=== PATIENT | female | born 1980 | race Caucasian/White ===

== ENCOUNTER 2016-12-23 18:59 | Emergency (ER) | payer BC ==
[2016-12-23 19:00] VITALS: BMI 22.4
[2016-12-23 19:04] VITALS: BP 105/63; PULSE 81; RESP 16; TEMP 99.5; O2SAT 99
[2016-12-23] MEDS ORDERED: Sodium Chloride 0.9% 1,000 ML IV STA (19:39)
--- NOTE | 2016-12-23 19:56 | ED PDOC ---
HPI: Female Pain Time Seen by Provider: 12/23/16 19:00 Chief Complaint (Nursing): Female Genitourinary Chief Complaint (Provider): Female Genitourinary History Per: Patient History/Exam Limitations: no limitations Onset/Duration Of Symptoms: Intermittent Episodes (intermittent bleeding x3 weeks), Worse Since (heavy bleeding x1 day) Current Symptoms Are (Timing): Still Present Associated Symptoms: denies: Fever, Vomiting Additional Complaint(s): 36 year old female presents to ED with complaints of heavy vaginal bleeding x1 day and is . States that the bleeding has since resolved since passing a heavy clot in the ED. (-) pain of any kind, vomiting, or fever. Notes that she found out about x3 weeks ago and has been bleeding intermittently since then. States that VAULT CLERK noted possible passing /blighted ovum. Patient noted being unsure of whether to use Misoprostol or D&C. PCP: Non [facility] Abnormal Vaginal Bleeding: Yes : 2 Para: 1 Past Medical History Reviewed: Historical Data, Nursing Documentation, Vital Signs Vital Signs: Last Vital Signs Temp 99.5 F 12/23/16 19:03 Pulse 81 12/23/16 19:03 Resp 16 12/23/16 19:03 BP 105/63 12/23/16 19:03 Pulse Ox 99 12/23/16 19:03 - Medical History PMH: Anemia Denies: Chronic Kidney Disease - Surgical History Surgical History: No Surg Hx - Family History Family History: States: No Known Family Hx - Social History Current smoker - smoking cessation education provided: No Ex-Smoker (has not smoked in the last 12 months): No Alcohol: None Drugs: Denies - Allergies Allergies/Adverse Reactions: Allergies Allergy/AdvReac Type Severity Reaction Status Date / Time pollens Allergy ITCHING Uncoded 11/03/15 11:31 Review of Systems ROS Statement: Except As Marked, All Systems Reviewed And Found Negative Constitutional: Negative for: Fever Gastrointestinal: Negative for: Vomiting, Abdominal Pain Genitourinary Female: Positive for: Vaginal Bleeding. Negative for: Pelvic Pain Musculoskeletal: Negative for: Back Pain Physical Exam - Reviewed Nursing Documentation Reviewed: Yes Vital Signs Reviewed: Yes - Physical Exam Appears: Positive for: Non-toxic, No Acute Distress Skin: Positive for: Normal Color, Warm, Dry Cardiovascular/Chest: Positive for: Regular Rate, Rhythm. Negative for: Murmur Respiratory: Positive for: Normal Breath Sounds. Negative for: Respiratory Distress Gastrointestinal/Abdominal: Positive for: Normal Exam, Soft. Negative for: Tenderness Back: Positive for: Normal Inspection Extremity: Positive for: Normal ROM. Negative for: Deformity Neurologic/Psych: Positive for: Alert, Oriented. Negative for: Motor/Sensory Deficits - Laboratory Results Result Diagrams: 12/23/16 19:55 12/23/16 19:55 - ECG O2 Sat by Pulse Oximetry: 99 (RA) Pulse Ox Interpretation: Normal Medical Decision Making Medical Decision Makin Initial impression: vaginal bleeding r/o complete AB Initial plan: * T&S * BETA HCG QUANT * Labs * NS IV * Urine C&S * UA * US TRANSVAG 2199 US FINDINGS: Uterus/cervix: The uterus measures 8.9 cm in its cephalocaudad dimension and 5.6 cm in its AP dimension. The endometrium is slightly thickened measuring 16 mm, irregular and inhomogeneous. There is decreased echogenicity extending into the fundal myometrium with increased vascularity of the myometrium surrounding this area. Real-time, there are internal echoes suggesting swirling blood. Right ovary: The right ovary measures 2.9 x 1.3 x 2.1 cm and demonstrates blood flow. Left ovary: The the left ovary measures 2.6 x 1.1 x 2.4 cm and demonstrates a small echogenic nodule measuring 5 mm which may reflect a dermoid. Left ovarian blood flow is present. Free fluid: No free fluid. IMPRESSION: 1. Area of decreased echogenicity extending into the fundal myometrium with moving low-level internal echoes suggesting blood which is surrounded by increased myometrial vascularity. Findings may reflect residua of morbidly adherent placenta. 2. Slightly thickened and irregular endometrium which may reflect blood clot or retained products of conception. 3. 5 mm hyperechoic nodule the left ovary which may reflect a small dermoid. Hemoglobin level: stable UA: negative for infection Patient was made aware of the results and will follow up with DYE RE[employer] OPERATOR HELPER. Patient has had no further bleeding in ED. 2026 Dr. Hein ptsgynecologist being covered by Dr. Pereira, recommends Cytotec 600mg PO x1 in ED. pt agreeable and told to follow up with her doctor tomorrow. made aware of results of CT, copy given for follow up Scribe Attestation: Documented by Olivia Martinez acting as a scribe for Beck Michael MD. Scribe Attestation: All medical record entries made by the Scribe were at my direction and personally dictated by me. I have reviewed the chart and agree that the record accurately reflects my personal performance of the history, physical exam, medical decision making, and the department course for this patient. I have also personally directed, reviewed, and agree with the discharge instructions and disposition. Disposition - Clinical Impression Clinical Impression: Female genitourinary symptoms, Incomplete - Patient ED Disposition Is Patient to be Admitted: No Counseled Patient/Family Regarding: Studies Performed, Diagnosis, Need For Followup - Disposition Disposition: Left W/O Treatment Disposition Time: 21:00 Condition: STABLE Additional Instructions: follow up with your internal medicine doctor in 1-2 days return to the ED with any worsening or concerning symptoms. Instructions: Spontaneous Miscarriage (ED)
[2016-12-23 20:14] LABS: BASO % 0.3 % (0.0-2.0); EOS # 0.1 K/uL (0.0-0.7); EOS % 2.7 % (0.0-4.0); LYMPH # 2.1 K/uL (1.0-4.3); MEAN CELL VOLUME 87.6 fl (81.0-99.0); MEAN CORPUSCULAR HEMOGLOBIN 29.1 pg (27.0-31.0); MEAN CORPUSCULAR HGB CONC 33.2 g/dL (33.0-37.0); MEAN PLATELET VOLUME 7.6 fl (7.2-11.7); MONO # 0.4 K/uL (0.0-0.8); MONO % 8.2 % (0.0-10.0); NEUT # 2.2 K/uL (1.8-7.0); NEUT % 45.8 % (50.0-75.0); NRBC % 0.3 % (0.0-0.0); RED CELL DISTRIBUTION WIDTH 13.6 % (11.5-14.5); WHITE BLOOD COUNT 4.9 K/uL (4.8-10.8)
[2016-12-23 20:17] LABS: RBC URINE 3 /hpf (0-3); URINE BACTERIA RARE (<OCC); URINE BILIRUBIN NEGATIVE (NEGATIVE); URINE BLOOD LARGE (NEGATIVE); URINE COLOR STRAW (YELLOW); URINE GLUCOSE (UA) NEG (Normal); URINE KETONE NEGATIVE (NEGATIVE); URINE LEUKOCYTE ESTERASE NEG Leu/uL (Negative); URINE PROTEIN NEGATIVE (NEGATIVE); URINE UROBILINOGEN 0.2-1.0 mg/dL (0.2-1.0); WBC URINE < 1 /hpf (0-5)
[2016-12-23 20:23] LABS: ALB/GLOB RATIO 1.5 (1.0-2.1); ALKALINE PHOSPHATASE 50 U/L (38-126); ALT/SGPT 25 U/L (9-52); AST/SGOT 20 U/L (14-36); BILIRUBIN,TOTAL 0.1 mg/dl (0.2-1.3); BLOOD UREA NITROGEN 8 mg/dl (7-17); CALCIUM 8.6 mg/dL (8.4-10.2); CARBON DIOXIDE 27 mmol/L (22-30); CHLORIDE 104 mmol/L (98-107); GFR AFRICAN-AMERICAN > 60; GLUCOSE,RANDOM 91 mg/dL (65-105); SODIUM 139 mmol/l (132-148); TOTAL PROTEIN 6.5 G/DL (6.3-8.2)
--- NOTE | 2016-12-24 16:13 | US ---
Indication: Miscarriage Comparison: No prior Technique: Transvaginal pelvic ultrasound Findings: The uterus measures approximately 8.9 x 6.4 x 5.9 cm. The endometrium appears irregular and heterogeneous as well as slightly thickened measuring approximately 16 mm in diameter. Decreased echogenicity is noted extending into the fundal myometrium with possible increased vascularity of the myometrium in this region. Internal echoes are noted. The right ovary measures approximately 2.9 x 2.1 x 1.3 cm. Blood flow is demonstrated. The left ovary measures approximately 2.6 x 1.1 x 2.4 cm. 5 mm echogenic nodule is identified which may represent a dermoid. Blood flow is demonstrated to the left ovary. No significant pelvic free fluid identified. Impression: The endometrium appears irregular and heterogeneous as well as slightly thickened measuring approximately 16 mm in diameter. Decreased echogenicity is noted extending into the fundal myometrium with possible increased vascularity of the myometrium in this region. Internal echoes are noted. Correlate clinically. Retained products of conception are not excluded. 5 mm echogenic nodule, left ovary; may reflect small dermoid. Preliminary impression was provided by virtual radiologic.
== END 2016-12-23 22:12 | disposition home or self-care (01) ==
LOC: H.ER 18:59
DX: O03.9 Complete or unspecified spontaneous abortion without complication (principal)
CPT/HCPCS: 76830; 80053; 81003; 84702; 85025; 86850; 86900; 87086; 99285; J7040

== ENCOUNTER 2016-12-24 04:48 | Inpatient (IN) | payer BC ==
[2016-12-24 04:49] VITALS: BMI 22.4
[2016-12-24] MEDS ORDERED: Sodium Chloride 0.9% 1,000 ML IV STA ×4 (05:08→13:19)
[2016-12-24 05:29] LABS: BASO % 0.2 % (0.0-2.0); EOS % 0.4 % (0.0-4.0); HEMATOCRIT 25.6 % (34.0-47.0); LYMPH % 11.8 % (20.0-40.0); MEAN CELL VOLUME 87.5 fl (81.0-99.0); MEAN CORPUSCULAR HEMOGLOBIN 29.1 pg (27.0-31.0); MEAN CORPUSCULAR HGB CONC 33.2 g/dL (33.0-37.0); MEAN PLATELET VOLUME 7.2 fl (7.2-11.7); MONO # 0.3 K/uL (0.0-0.8); MONO % 3.1 % (0.0-10.0); NEUT # 6.8 K/uL (1.8-7.0); NEUT % 84.5 % (50.0-75.0); RED CELL DISTRIBUTION WIDTH 13.9 % (11.5-14.5); WHITE BLOOD COUNT 8.1 K/uL (4.8-10.8)
--- NOTE | 2016-12-24 05:33 | ED PDOC ---
HPI: Female Pain Time Seen by Provider: 12/24/16 04:50 Chief Complaint (Nursing): Dizziness/Lightheaded Chief Complaint (Provider): near syncope, heavy vaginal bleeding History Per: Patient History/Exam Limitations: no limitations Onset/Duration Of Symptoms: Days Current Symptoms Are (Timing): Still Present Additional Complaint(s): 36yo female who is 9 weeks and has been passing for about 2.5 weeks now presents to the ED for eval of near syncope and heavy vaginal bleeding. Patient was seen and evaluated in this ED last night for same and discharged with diagnosis of incomplete and advised to take cytotec and f/u w/ her ECONOMIC FORECASTER in 1-2 days. Patient states she had near syncopal event prior to presenting and notes heavy vaginal bleeding, cramping, and vomiting so she re-presented to the ED. On arrival to the ED, patient feels a little better. Past Medical History Reviewed: Historical Data, Nursing Documentation, Vital Signs Vital Signs: Last Vital Signs Temp 99 F 12/24/16 05:00 Pulse 68 12/24/16 05:00 Resp 16 12/24/16 05:00 BP 77/45 L 12/24/16 05:00 Pulse Ox 98 12/24/16 05:00 - Medical History PMH: Anemia Denies: Chronic Kidney Disease - Surgical History Surgical History: No Surg Hx - Family History Family History: States: No Known Family Hx - Social History Current smoker - smoking cessation education provided: No Alcohol: None Drugs: Denies - Home Medications Home Medications: Ambulatory Orders Medication Instructions Recorded Ferrous Sulfate [Iron] 325 mg PO Q8H #100 capsule.er 12/25/16 - Allergies Allergies/Adverse Reactions: Allergies Allergy/AdvReac Type Severity Reaction Status Date / Time pollens Allergy ITCHING Uncoded 11/03/15 11:31 Review of Systems ROS Statement: Except As Marked, All Systems Reviewed And Found Negative Constitutional: Positive for: Other (near syncope ) Gastrointestinal: Positive for: Vomiting Genitourinary Female: Positive for: Vaginal Bleeding, Other (cramping ) Physical Exam - Reviewed Nursing Documentation Reviewed: Yes Vital Signs Reviewed: Yes - Physical Exam Appears: Positive for: Well, No Acute Distress Head Exam: Positive for: ATRAUMATIC, NORMAL INSPECTION, NORMOCEPHALIC Skin: Positive for: Warm, Dry, Pallor Eye Exam: Positive for: Normal appearance, EOMI, PERRL ENT: Positive for: Normal ENT Inspection Neck: Positive for: Normal, Painless ROM, Supple Cardiovascular/Chest: Positive for: Regular Rate, Rhythm. Negative for: Murmur , Tachycardia Respiratory: Positive for: Normal Breath Sounds. Negative for: Wheezing, Respiratory Distress Gastrointestinal/Abdominal: Positive for: Normal Exam, Soft. Negative for: Tenderness Back: Positive for: Normal Inspection. Negative for: L CVA Tenderness, R CVA Tenderness Extremity: Positive for: Normal ROM. Negative for: Deformity, Swelling Neurologic/Psych: Positive for: Alert, Oriented - Laboratory Results Result Diagrams: 12/25/16 08:15 12/24/16 05:17 - ECG O2 Sat by Pulse Oximetry: 98 Pulse Ox Interpretation: Normal (RA) Medical Decision Making Medical Decision Makin: Impression: near syncope and heavy vaginal bleeding in setting of currently miscarrying Plan: Type and screen US transvaginal Labs IVF, Zofran 4mg IV ED obs reassess 0545: Spoke with Dr. Rogers (ECONOMIC FORECASTER covering for patient's ECONOMIC FORECASTER) who is aware and will see if a provider from her group can come in to evaluate the patient. 0554: Dr. Rogers called back and states she does not have privileges to operate here. ECONOMIC FORECASTER on-call paged. 0607: Spoke with TELEPHONE LINEMAN on-call Dr. Alexander who will come to ED and see the patient. Patient s/o to Dr. Martinez at 0700 pending TELEPHONE LINEMAN eval. Scribe Attestation: Documented by Castillo Mahoney acting as a scribe for Beck Michael MD. Provider Scribe Attestation: All medical record entries made by the Scribe were at my direction and personally dictated by me. I have reviewed the chart and agree that the record accurately reflects my personal performance of the history, physical exam, medical decision making, and the department course for this patient. I have also personally directed, reviewed, and agree with the discharge instructions and disposition. ED OBSERVATION Date of observation admission: 12/24/16 Time of observation admission: 05:31 - Observation admission statement Patient is being placed in observation because:: vaginal bleeding, near syncope - Goals of Observation Goals of observation are:: pending US transvaginal Disposition - Clinical Impression Clinical Impression: Incomplete , Anemia - Patient ED Disposition Is Patient to be Admitted: Transfer of Care Counseled Patient/Family Regarding: Studies Performed, Diagnosis - Disposition Disposition: Transfer of Care Disposition Time: 07:00 Condition: FAIR Patient Signed Over To: Elbert Martinez Handoff Comments: pending TELEPHONE LINEMAN eval
[2016-12-24 05:42] LABS: ALB/GLOB RATIO 1.5 (1.0-2.1); ALKALINE PHOSPHATASE 35 U/L (38-126); ALT/SGPT 22 U/L (9-52); AST/SGOT 19 U/L (14-36); BILIRUBIN,TOTAL 0.1 mg/dl (0.2-1.3); BLOOD UREA NITROGEN 7 mg/dl (7-17); CALCIUM 8.1 mg/dL (8.4-10.2); CARBON DIOXIDE 24 mmol/L (22-30); CHLORIDE 100 mmol/L (98-107); GFR AFRICAN-AMERICAN > 60; GLUCOSE,RANDOM 114 mg/dL (65-105); POTASSIUM 3.9 MMOL/L (3.6-5.0); SODIUM 132 mmol/l (132-148); TOTAL PROTEIN 5.6 G/DL (6.3-8.2)
--- NOTE | 2016-12-24 08:09 | CP.PCM.CON ---
History of Present Illness - History of Present Illness History of Present Illness: 36 y/o presents to ED with a complaint of heavy vaginal bleeding since the night of 12/23. Pt reports she was 9 weeks when vaginal spotting began to appear 2 weeks ago. She then reports to her OBGYN (Dr. Lopez) who told her she was in the process of having an SAB. She was started on Cytotec after retained products of conception were found on u/s. After inital 600mg dose, pt reports she started profusely bleeding vaginally as well as having shaking chills and nausea/vomiting/diarrhea with lower cramping abdominal pain. POBHx: 1 , FT, uncomplicated in 2014 PGynHx: denies hx of fibroids, STIs, surgeries LMP: October 14, 2016 PMHx: none Meds: none Psurghx: none ALL: NKDA Social: denies ETOH, Drug, tobacco abuse. PE: Gen: AAOx3, lying in bed comfortably, NAD CVS: RRR, S1S2+. No MRG Lungs: CTA B/L, good air entry, No WRR Abd: +BS, soft, minor tenderness to palpation suprapubically, ND, no guarding ridigity : declined Back: neg CVA tenderness. A/P: 36 y/o undergoing SAB at 8 weeks GA. -s/p two units PRBCs -u/s reviewed -pt seen and case discussed with Dr. Grajeda -No OBGYN intervention at this point, will continue to follow Past Patient History - Past Medical History & Family History Past Medical History?: Yes - Past Social History Alcohol: None Drugs: Denies - CARDIAC Hx Cardiac Disorders: No - PULMONARY Hx Respiratory Disorders: No - NEUROLOGICAL Hx Neurological Disorder: No - HEENT Hx HEENT Problems: No - RENAL Hx Chronic Kidney Disease: No - ENDOCRINE/METABOLIC Hx Endocrine Disorders: No - HEMATOLOGICAL/ONCOLOGICAL Hx Anemia: Yes - GASTROINTESTINAL Hx Gastrointestinal Disorders: No - GENITOURINARY/GYNECOLOGICAL Hx Genitourinary Disorders: No - PSYCHIATRIC Hx Emotional Abuse: No Hx Physical Abuse: No Hx Substance Use: No - SURGICAL HISTORY Hx Surgeries: No - ANESTHESIA Hx Anesthesia: No Hx Malignant Hyperthermia: No Meds Allergies/Adverse Reactions: Allergies Allergy/AdvReac Type Severity Reaction Status Date / Time pollens Allergy ITCHING Uncoded 11/03/15 11:31 Results - Vital Signs Recent Vital Signs: Last Vital Signs Temp 98.2 F 12/24/16 07:31 Pulse 67 12/24/16 07:31 Resp 18 12/24/16 07:31 BP 102/57 L 12/24/16 07:31 Pulse Ox 100 12/24/16 07:31 - Labs Result Diagrams: 12/24/16 12:38 12/24/16 05:17
--- NOTE | 2016-12-24 10:54 | US ---
Indication: Post Cytotec bleeding Technique: Transvaginal pelvic ultrasound. Comparison: None available. Findings: The uterus measures approximately 9.1 x 5.9 x 5.4 cm. The endocervical canal is not clearly distinguished throughout its course. Small fluid is noted within the fundal aspect of the endometrial canal. The remainder of the visualized portions of the endometrium appear heterogeneous. The right ovary measures 2.7 x 2.3 x 1.8 9 cm and appears unremarkable. The left ovary measures 2.6 x 2.6 x 1.4 cm and contains 5 mm echogenic focus, favored to represent small fatty lesion such as teratoma. Blood flow is noted to both ovaries. Trace pelvic free fluid. Impression: The endocervical canal is not clearly distinguished throughout its course. Small fluid is noted within the fundal aspect of the endometrial canal. The remainder of the visualized portions of the endometrium appear heterogeneous. 5 mm left ovarian echogenic focus, favored to represent small fatty lesion such as teratoma. Trace pelvic free fluid. Recommend clinical correlation and close interval ultrasound follow-up (within 6 weeks or sooner if indicated).
[2016-12-24 13:15] LABS: BASO % 0.1 % (0.0-2.0); EOS % 0.6 % (0.0-4.0); HEMATOCRIT 19.3 % (34.0-47.0); LYMPH # 1.5 K/uL (1.0-4.3); LYMPH % 29.5 % (20.0-40.0); MEAN CELL VOLUME 88.5 fl (81.0-99.0); MEAN CORPUSCULAR HGB CONC 32.8 g/dL (33.0-37.0); MEAN PLATELET VOLUME 7.5 fl (7.2-11.7); MONO # 0.3 K/uL (0.0-0.8); MONO % 5.3 % (0.0-10.0); NEUT # 3.2 K/uL (1.8-7.0); NEUT % 64.5 % (50.0-75.0); NRBC % 0.1 % (0.0-0.0); RED CELL DISTRIBUTION WIDTH 13.9 % (11.5-14.5)
--- NOTE | 2016-12-24 15:09 | ED PDOC ---
- Laboratory Results Result Diagrams: 12/24/16 12:38 12/24/16 05:17 - ECG O2 Sat by Pulse Oximetry: 100 Disposition - Clinical Impression Clinical Impression: Incomplete , Anemia - POA Present On Arrival: None - Disposition Disposition: Admitted as In-Patient Disposition Time: 15:09 Condition: FAIR
[2016-12-25 08:23] LABS: BASO % 0.5 % (0.0-2.0); EOS # 0.1 K/uL (0.0-0.7); EOS % 2.2 % (0.0-4.0); HEMATOCRIT 27.8 % (34.0-47.0); LYMPH # 1.9 K/uL (1.0-4.3); LYMPH % 36.1 % (20.0-40.0); MEAN CELL VOLUME 86.9 fl (81.0-99.0); MEAN CORPUSCULAR HGB CONC 33.4 g/dL (33.0-37.0); MEAN PLATELET VOLUME 7.4 fl (7.2-11.7); MONO # 0.3 K/uL (0.0-0.8); MONO % 6.2 % (0.0-10.0); NEUT # 2.9 K/uL (1.8-7.0); RED CELL DISTRIBUTION WIDTH 14.5 % (11.5-14.5); WHITE BLOOD COUNT 5.2 K/uL (4.8-10.8)
--- NOTE | 2016-12-25 09:42 | CP.PCM.PN ---
Subjective - Date & Time of Evaluation Date of Evaluation: 12/25/16 Time of Evaluation: 09:30 - Subjective Subjective: She has no more VB. She feels better after trasnfusions. Tolerated diet. She wants to go home Objective - Vital Signs/Intake and Output Vital Signs (last 24 hours): Temp Pulse Resp BP Pulse Ox 97.6 F 77 20 100/60 100 12/25/16 07:47 12/25/16 07:47 12/25/16 07:47 12/25/16 07:47 12/25/16 07:47 - Medications Medications: Current Medications Acetaminophen (Tylenol 325mg Tab) 650 mg PO Q6 PRN PRN Reason: Fever >100.4 F Last Admin: 12/24/16 19:26 Dose: 650 mg Acetaminophen (Tylenol 325mg Tab) 650 mg PO Q6 PRN PRN Reason: Headache Last Admin: 12/25/16 02:00 Dose: 650 mg - Labs Labs: 12/25/16 08:15 - Constitutional Appears: Well, Non-toxic - Head Exam Head Exam: NORMAL INSPECTION - GI/Abdominal Exam GI & Abdominal Exam: Soft. absent: Tenderness - Exam Additional comments: no blood noted on pad Assessment and Plan - Assessment and Plan (Free Text) Assessment: Complete /Anemia S/ P transfusion...asymptomatic Plan: Discahrge home with FeSO4 and follow up PMD in 1-2w
--- NOTE | 2016-12-25 09:44 | CP.PCM.DIS ---
Provider - Provider Date of Admission: 12/24/16 15:07 Attending physician: Jennyfer Grajeda MD Time Spent in preparation of Discharge (in minutes): 10 Diagnosis - Discharge Diagnosis (1) Complete spontaneous Status: Resolved Onset Date: ~12/24/16 Hospital Course - Lab Results Lab Results: Most Recent Lab Values WBC 5.2 K/uL (4.8-10.8) 12/25/16 08:15 RBC 3.20 Mil/uL (3.80-5.20) L 12/25/16 08:15 Hgb 9.3 g/dL (12.0-16.0) L D 12/25/16 08:15 Hct 27.8 % (34.0-47.0) L 12/25/16 08:15 MCV 86.9 fl (81.0-99.0) 12/25/16 08:15 MCH 29.0 pg (27.0-31.0) 12/25/16 08:15 MCHC 33.4 g/dL (33.0-37.0) 12/25/16 08:15 RDW 14.5 % (11.5-14.5) 12/25/16 08:15 Plt Count 123 K/uL (130-400) L 12/25/16 08:15 MPV 7.4 fl (7.2-11.7) 12/25/16 08:15 Neut % (Auto) 55.0 % (50.0-75.0) 12/25/16 08:15 Lymph % (Auto) 36.1 % (20.0-40.0) 12/25/16 08:15 [place] % (Auto) 6.2 % (0.0-10.0) 12/25/16 08:15 Eos % (Auto) 2.2 % (0.0-4.0) 12/25/16 08:15 Baso % (Auto) 0.5 % (0.0-2.0) 12/25/16 08:15 Neut # 2.9 K/uL (1.8-7.0) 12/25/16 08:15 Lymph # 1.9 K/uL (1.0-4.3) 12/25/16 08:15 [place] # 0.3 K/uL (0.0-0.8) 12/25/16 08:15 Eos # 0.1 K/uL (0.0-0.7) 12/25/16 08:15 Baso # 0.0 K/uL (0.0-0.2) 12/25/16 08:15 Sodium 132 mmol/l (132-148) 12/24/16 05:17 Potassium 3.9 MMOL/L (3.6-5.0) 12/24/16 05:17 Chloride 100 mmol/L (98-107) 12/24/16 05:17 Carbon Dioxide 24 mmol/L (22-30) 12/24/16 05:17 Anion Gap 12 (10-20) 12/24/16 05:17 BUN 7 mg/dl (7-17) 12/24/16 05:17 Creatinine 0.6 mg/dL (0.7-1.2) L 12/24/16 05:17 Est GFR ( Amer) > 60 12/24/16 05:17 Est GFR (Non-Af Amer) > 60 12/24/16 05:17 POC Glucose (mg/dL) 142 mg/dL (65-110) H 12/24/16 05:10 Random Glucose 114 mg/dL (65-105) H 12/24/16 05:17 Calcium 8.1 mg/dL (8.4-10.2) L 12/24/16 05:17 Total Bilirubin 0.1 mg/dl (0.2-1.3) L 12/24/16 05:17 AST 19 U/L (14-36) 12/24/16 05:17 ALT 22 U/L (9-52) 12/24/16 05:17 Alkaline Phosphatase 35 U/L (38-126) L D 12/24/16 05:17 Total Protein 5.6 G/DL (6.3-8.2) L 12/24/16 05:17 Albumin 3.4 g/dL (3.5-5.0) L 12/24/16 05:17 Globulin 2.2 gm/dL (2.2-3.9) 12/24/16 05:17 Albumin/Globulin Ratio 1.5 (1.0-2.1) 12/24/16 05:17 Beta HCG, Quant 107.99 mIU/mL 12/24/16 05:17 Blood Type O POSITIVE 12/24/16 05:17 Antibody Screen Negative 12/24/16 05:17 Crossmatch See Detail 12/24/16 05:17 BBK History Checked Patient has bt 12/24/16 05:17 - Hospital Course Hospital Course: Transfused PRBC - Date & Time of H&P Date of H&P: 12/24/16 Time of H&P: 09:00 Discharge Exam - Head Exam Head Exam: NORMAL INSPECTION - Respiratory Exam Respiratory Exam: NORMAL BREATHING PATTERN - GI/Abdominal Exam GI & Abdominal Exam: Unremarkable Discharge Plan - Discharge Medications Prescriptions: Ferrous Sulfate [Iron] 325 mg PO Q8H #100 capsule.er - Follow Up Plan Condition: FAIR Disposition: HOME/ ROUTINE Additional Instructions: Follow up PMD in 1-2w
[2016-12-25] MEDS ORDERED: ceFAZolin 1 GM in Sodium Chloride 0.9% 100 ML IVPB ONE (10:51)
--- NOTE | 2016-12-25 10:54 | CP.PCM.PN ---
Subjective - Date & Time of Evaluation Date of Evaluation: 12/25/16 Time of Evaluation: 10:45 - Subjective Subjective: SHe had heavy vb and passing large blood clots/some tissue Objective - Vital Signs/Intake and Output Vital Signs (last 24 hours): Temp Pulse Resp BP Pulse Ox 97.6 F 77 20 100/60 100 12/25/16 07:47 12/25/16 07:47 12/25/16 07:47 12/25/16 07:47 12/25/16 07:47 - Medications Medications: Current Medications Acetaminophen (Tylenol 325mg Tab) 650 mg PO Q6 PRN PRN Reason: Fever >100.4 F Last Admin: 12/24/16 19:26 Dose: 650 mg Acetaminophen (Tylenol 325mg Tab) 650 mg PO Q6 PRN PRN Reason: Headache Last Admin: 12/25/16 02:00 Dose: 650 mg Lactated Ringer's (Lactated Ringer's) 1,000 mls @ 125 mls/hr IV .Q8H RIZWAN Stop: 12/26/16 02:59 - Labs Labs: 12/25/16 08:15 - Constitutional Appears: Non-toxic - Exam Additional comments: Large amt boold; cervix open (tissue in os) Assessment and Plan (1) Complete spontaneous Status: Resolved - Assessment and Plan (Free Text) Assessment: Incomplete Plan: will prep for OR. Condition discussed with pt. She doesn't want Cytotec again (given by LIVIA norman)..D&C disucssed with pt...informed consent obtained
[2016-12-25] MEDS ORDERED: Lactated Ringer's 1,000 ML IV SCH ×2 (11:00→13:30)
[2016-12-25] MEDS ORDERED: Lactated Ringer's 1,000 ML IV ONE (12:30)
[2016-12-25] MEDS ORDERED: HYDROmorphone 0.5 mg/0.5 ml ISec IVP PRN (13:21)
[2016-12-25] MEDS ORDERED: Oxycodone/Acetaminophen 5/325 mg Tab PO PRN (13:33)
--- NOTE | 2016-12-25 13:37 | PCM.SURG1 ---
Surgeon's Initial Post Op Note - Surgeon's Notes Surgeon: Martha Alexander DO Machine Hand: none Type of Anesthesia: General Endo Anesthesia Administered By: Dr Rizvi Pre-Operative Diagnosis: Incomplete Operative Findings: Cervix open 1cm/POC at os/uterus 8w size Post-Operative Diagnosis: same Operation Performed: Evacuation and currettage Specimen/Specimens Removed: POC Estimated Blood Loss: EBL {In ML}: 0 Blood Products Given: N/A Drains Used: No Drains Date of Surgery/Procedure: 12/25/16 Time of Surgery/Procedure: 12:45
[2016-12-25 16:08] VITALS: RESP 18
[2016-12-25 17:05] VITALS: BP 96/54; PULSE 79; TEMP 98.3; O2SAT 98
--- NOTE | 2016-12-26 01:48 | CP.PCM.DIS ---
Provider - Provider Date of Admission: 12/24/16 15:07 Attending physician: Jennyfer Grajeda MD Time Spent in preparation of Discharge (in minutes): 10 Diagnosis - Discharge Diagnosis (1) Complete spontaneous Status: Resolved Onset Date: ~12/24/16 Hospital Course - Lab Results Lab Results: Most Recent Lab Values WBC 5.2 K/uL (4.8-10.8) 12/25/16 08:15 RBC 3.20 Mil/uL (3.80-5.20) L 12/25/16 08:15 Hgb 9.3 g/dL (12.0-16.0) L D 12/25/16 08:15 Hct 27.8 % (34.0-47.0) L 12/25/16 08:15 MCV 86.9 fl (81.0-99.0) 12/25/16 08:15 MCH 29.0 pg (27.0-31.0) 12/25/16 08:15 MCHC 33.4 g/dL (33.0-37.0) 12/25/16 08:15 RDW 14.5 % (11.5-14.5) 12/25/16 08:15 Plt Count 123 K/uL (130-400) L 12/25/16 08:15 MPV 7.4 fl (7.2-11.7) 12/25/16 08:15 Neut % (Auto) 55.0 % (50.0-75.0) 12/25/16 08:15 Lymph % (Auto) 36.1 % (20.0-40.0) 12/25/16 08:15 [place] % (Auto) 6.2 % (0.0-10.0) 12/25/16 08:15 Eos % (Auto) 2.2 % (0.0-4.0) 12/25/16 08:15 Baso % (Auto) 0.5 % (0.0-2.0) 12/25/16 08:15 Neut # 2.9 K/uL (1.8-7.0) 12/25/16 08:15 Lymph # 1.9 K/uL (1.0-4.3) 12/25/16 08:15 [place] # 0.3 K/uL (0.0-0.8) 12/25/16 08:15 Eos # 0.1 K/uL (0.0-0.7) 12/25/16 08:15 Baso # 0.0 K/uL (0.0-0.2) 12/25/16 08:15 Sodium 132 mmol/l (132-148) 12/24/16 05:17 Potassium 3.9 MMOL/L (3.6-5.0) 12/24/16 05:17 Chloride 100 mmol/L (98-107) 12/24/16 05:17 Carbon Dioxide 24 mmol/L (22-30) 12/24/16 05:17 Anion Gap 12 (10-20) 12/24/16 05:17 BUN 7 mg/dl (7-17) 12/24/16 05:17 Creatinine 0.6 mg/dL (0.7-1.2) L 12/24/16 05:17 Est GFR ( Amer) > 60 12/24/16 05:17 Est GFR (Non-Af Amer) > 60 12/24/16 05:17 POC Glucose (mg/dL) 142 mg/dL (65-110) H 12/24/16 05:10 Random Glucose 114 mg/dL (65-105) H 12/24/16 05:17 Calcium 8.1 mg/dL (8.4-10.2) L 12/24/16 05:17 Total Bilirubin 0.1 mg/dl (0.2-1.3) L 12/24/16 05:17 AST 19 U/L (14-36) 12/24/16 05:17 ALT 22 U/L (9-52) 12/24/16 05:17 Alkaline Phosphatase 35 U/L (38-126) L D 12/24/16 05:17 Total Protein 5.6 G/DL (6.3-8.2) L 12/24/16 05:17 Albumin 3.4 g/dL (3.5-5.0) L 12/24/16 05:17 Globulin 2.2 gm/dL (2.2-3.9) 12/24/16 05:17 Albumin/Globulin Ratio 1.5 (1.0-2.1) 12/24/16 05:17 Beta HCG, Quant 107.99 mIU/mL 12/24/16 05:17 Blood Type O POSITIVE 12/24/16 05:17 Antibody Screen Negative 12/24/16 05:17 Crossmatch See Detail 12/24/16 05:17 BBK History Checked Patient has bt 12/24/16 05:17 - Hospital Course Hospital Course: Admitted for anemia secondary to vaginal bleeding/Spont Ab. She was transfused PRBC and observed for 24h. She had sonogram which was reported as negative. She was originally discharged home in the morning from the ER (no beds upstairs) . She went to the bathroom and had another episode of VB (large amount). She underwent E&C and POC obtained. She was stable postop and discharged home - Date & Time of H&P Date of H&P: 12/24/16 Discharge Exam - Head Exam Head Exam: ATRAUMATIC, NORMAL INSPECTION, NORMOCEPHALIC - Respiratory Exam Respiratory Exam: UNREMARKABLE - GI/Abdominal Exam GI & Abdominal Exam: Unremarkable - Exam External exam: NORMAL EXTERNAL EXAM Discharge Plan - Discharge Medications Prescriptions: Ferrous Sulfate [Iron] 325 mg PO Q8H #100 capsule.er - Follow Up Plan Condition: FAIR Disposition: HOME/ ROUTINE Instructions: Threatened Miscarriage (ED) Additional Instructions: Follow up PMD in 1-2w
--- NOTE | 2016-12-26 17:49 | OP ---
PROCEDURE DATE: 12/25/2016 SURGEON: Vicente Alexander DO. SPINNER FRAME: None. ANESTHESIOLOGIST: Dr. Alford. ANESTHESIA: General endotracheal. PREOPERATIVE DIAGNOSES: Incomplete . POSTOPERATIVE DIAGNOSIS: Incomplete . OPERATIVE FINDINGS: Cervix is opened 1 cm. Products of conception at the os. Uterus approximately 8 weeks in size. OPERATION PERFORMED: Evacuation and curettage. SPECIMENS: Included products of conception. BLOOD LOSS: None. BLOOD PRODUCTS: Not applicable, but was given 2 units 1 day prior. DRAINS: None. PROCEDURE: The patient was brought to the operating room. She was placed in a supine position. Aft er successful general endotracheal induction by Dr. Alford, she was placed in lithotomy position. She was draped and prepped in the usual sterile manner. Catheter was used to drain the bladder of its c ontents. Exam under anesthesia was performed and the above findings were noted. A weighted speculum was placed in the posterior fornix of the vagina, right angle retractor in the anterior fornix of th e vagina to visualize the cervix. Cervix was grasped at the 12 o'clock position using ring forceps. Thereafter, a medium-sized curet was used to curet the endometrial cavity. Specimens included the p roducts of conception. This was done circumferentially and as gingerly as possible. All equipment w as removed and accounted for. IM Methergine 0.2 mg was given intraoperatively. All equipment, sponges were accounted for. She was successfully reversed from general anesthesia and then brought to the recovery room in stable condition. She has been given iron sulfate 325 mg p.o. t.i.d., Motrin 600 mg p.o. q. 6 hours p.r.n. for pain. S he has been advised to follow up in 2-3 weeks with her primary [employer] with Dr. Knapp in Group . Vicente Alexander DO cc: 135 TT: 12/26/2016 17:48:33 [place]
--- NOTE | 2016-12-27 15:23 | CARD ---
APPROVED REPORT EKG Measurement Heart [id number] <Conclusion> Normal sinus rhythm Normal ECG
== END 2016-12-25 17:40 | disposition home or self-care (01) | DRG 770 ==
LOC: H.ER 04:48 → H.EROBSV 05:31 → OBSVTOIN 15:07 → H.ERHOLD 15:17
PROVIDERS: ADMIT Obstetrics & Gynecology; ATTEND Obstetrics & Gynecology
PROC: 30233N1 Transfusion of Nonautologous Red Blood Cells into Peripheral Vein, Percutaneous Approach (ICD-10-PCS; 2016-12-24)
PROC: 10D17ZZ Extraction of Products of Conception, Retained, Via Natural or Artificial Opening (ICD-10-PCS; principal; 2016-12-25 12:45)
DX: O03.4 Incomplete spontaneous abortion without complication (principal); D62 Acute posthemorrhagic anemia; O20.9 Hemorrhage in early pregnancy, unspecified; O99.011 Anemia complicating pregnancy, first trimester; Z3A.08 8 weeks gestation of pregnancy